=== PATIENT | male | born 1980 | race Caucasian/White ===

== ENCOUNTER 2016-09-11 22:46 | Emergency (ER) | payer BC, OTHER ==
[~2016-09-11] VITALS: Ht 167.6 cm; Wt 85.9 kg
[~2016-09-11 22:46] MED LIST: NO HOME MEDICATIONS; PRIL40 PO; ROBAXIN 50500 MG/TAB PO; ULTRAM 50MG TAB50 MG PO
[2016-09-11 23:02] VITALS: TEMP 98.8
[2016-09-11 23:40] LABS: BASO % 0.5 % (0.0-2.0); EOS # 0.1 (0.0-0.7); EOS % 0.8 % (0-4.0); GRAN # 4.7 (1.4-6.5); GRAN % 55.2 % (42.2-75.2); HEMATOCRIT 42.9 % (42.0-52.0); HEMOGLOBIN 14.3 g/dl (13.5-18.0); LYMPH # 3.1 (1.2-3.4); MEAN CELL VOLUME 84 fl (80.0-100.0); MEAN CORPUSCULAR HEMOGLOBIN 28 pg (27.0-31.0); MEAN CORPUSCULAR HGB CONC 33 g/dl (33.0-37.0); MEAN PLATELET VOLUME 10.5 fl (7.4-10.4); MONO # 0.6 (0.1-0.6); MONO % 7.3 % (1.7-9.3); PLATELET COUNT 246 K/mm3 (130-400); RED BLOOD COUNT 5.12 M/mm3 (4.20-5.60); REDCELL DISTRIBUTION WIDTH-CV 13.6 % (11.5-14.5); WHITE BLOOD COUNT 8.5 K/mm3 (4.8-10.8)
[2016-09-11 23:50] LABS: ADJUSTED CALCIUM 8.7 mg/dL (8.4-10.2); ALANINE AMINOTRANSFERASE 42 U/L (21-72); ALBUMIN 4.6 gm/dL (3.5-5.0); ALKALINE PHOSPHATASE 56 U/L (50-136); ANION GAP 12 mmol/L (7-16); BILIRUBIN,TOTAL 0.7 mg/dL (0.0-1.0); BLOOD UREA NITROGEN 15 mg/dL (9-20); CALCIUM 9.2 mg/dL (8.4-10.2); CARBON DIOXIDE 27 mmol/L (22-30); CHLORIDE 103 mmol/L (98-107); CREATININE, serum 0.93 mg/dL (0.66-1.25); GLUCOSE 82 mg/dL (74-106); LIPASE 64 U/L (23-300); POTASSIUM 3.8 mmol/L (3.4-5.0); SODIUM 141 mmol/L (137-145)
[2016-09-12 00:03] LABS: B-TYPE NATRIURETIC PEPTIDE 15 pg/mL (0-125); TROPONIN-I < 0.012 ng/mL (0.000-0.034)
[2016-09-12 01:56] VITALS: BP 123/77; PULSE 56
== END 2016-09-12 02:19 | disposition home or self-care (01) ==
LOC: COL.ER 22:46
PROVIDERS: Emergency Medicine
DX: R07.9 Chest pain, unspecified (principal); R00.1 Bradycardia, unspecified
CPT/HCPCS: J1885

== ENCOUNTER → 2017-09-01 | Outpatient (CLI) | payer BC | LOC: COL.RAD 10:20 | DX: N13.30 Unspecified hydronephrosis (principal) | CPT/HCPCS: A9562; J1940 ==

== ENCOUNTER 2018-08-02 07:57 | Emergency (ER) | payer BC ==
[~2018-08-02] VITALS: Ht 170.2 cm; Wt 86.4 kg
[2018-08-02 08:00] VITALS: TEMP 97.1
[2018-08-02 08:14] LABS: COLLECTION METHOD CLEAN CATCH
[2018-08-02 08:24] LABS: MUCOUS Present /lpf; PH 6 (5-8); SQUAMOUS EPITHELIAL None Seen /hpf; URINE APPEARANCE Clear; URINE BACTERIA None Seen /hpf; URINE BILIRUBIN Negative (NEGATIVE); URINE BLOOD Negative (NEGATIVE); URINE COLOR Yellow; URINE GLUCOSE Negative (NEGATIVE); URINE KETONE Negative (NEGATIVE); URINE LEUKOCYTE ESTERASE Negative (NEGATIVE); URINE NITRATE Negative (NEGATIVE); URINE PROTEIN(semi-quant) Negative (NEGATIVE); URINE RBC 0-2 /hpf; URINE UROBILINOGEN Negative (NEGATIVE)
[2018-08-02 08:25] LABS: BASO # 0.1 (0.0-0.2); BASO % 0.6 % (0.0-2.0); EOS % 0.4 % (0-4.0); GRAN # 4.6 (1.4-6.5); GRAN % 50.6 % (42.2-75.2); HEMATOCRIT 44.4 % (42.0-52.0); HEMOGLOBIN 14.5 g/dl (13.5-18.0); LYMPH # 3.9 (1.2-3.4); LYMPH % 42.5 % (20.0-51.0); MEAN CELL VOLUME 85 fl (80.0-100.0); MEAN CORPUSCULAR HEMOGLOBIN 28 pg (27.0-31.0); MEAN CORPUSCULAR HGB CONC 33 g/dl (33.0-37.0); MEAN PLATELET VOLUME 10.8 fl (7.4-10.4); MONO # 0.5 (0.1-0.6); MONO % 5.7 % (1.7-9.3); PLATELET COUNT 232 K/mm3 (130-400); RED BLOOD COUNT 5.23 M/mm3 (4.20-5.60); REDCELL DISTRIBUTION WIDTH-CV 13.9 % (11.5-14.5)
[2018-08-02 08:37] LABS: ALBUMIN 4.4 gm/dL (3.5-5.0); BILIRUBIN,TOTAL 0.4 mg/dL (0.0-1.0); C-REACTIVE PROTEIN 0.6 mg/dL (0.0-0.9); CALCIUM 9.2 mg/dL (8.4-10.2); CREATININE, serum 0.81 mg/dL (0.66-1.25); POTASSIUM 4.5 mmol/L (3.4-5.0); TOTAL PROTEIN 7.8 gm/dL (6.4-8.2)
[2018-08-02] MEDS ORDERED: ZOFRAN 4MG T4 MG/TAB PO (09:57)
[2018-08-02] MEDS ORDERED: DAZIDOX10 MG PO (09:57)
[2018-08-02 10:13] VITALS: BP 126/90
[2018-08-02 11:52] VITALS: PULSE 51
== END 2018-08-02 11:53 | disposition home or self-care (01) ==
LOC: COL.ER 07:57
PROVIDERS: Physician Assistant
DX: N13.5 Crossing vessel and stricture of ureter without hydronephrosis (principal); Z87.442 Personal history of urinary calculi
CPT/HCPCS: J1630; J1885; J2270; J2405; J2550; J7030; J7040; Q9967

== ENCOUNTER 2019-01-13 16:28 | Emergency (ER) | payer BC ==
[~2019-01-13] VITALS: Ht 170.2 cm; Wt 93.2 kg
[~2019-01-13 16:28] MED LIST changes: +DAZIDOX10 MG PO; +ZOFRAN 4MG T4 MG/TAB PO
[2019-01-13 16:35] VITALS: BP 151/98; TEMP 98.6
[2019-01-13 19:24] LABS: BASO % 0.5 % (0.0-2.0); EOS % 0.2 % (0-4.0); GRAN # 5.5 (1.4-6.5); GRAN % 62.8 % (42.2-75.2); HEMATOCRIT 42.2 % (42.0-52.0); HEMOGLOBIN 14.1 g/dl (13.5-18.0); LYMPH # 2.7 (1.2-3.4); LYMPH % 30.5 % (20.0-51.0); MEAN CELL VOLUME 84 fl (80.0-100.0); MEAN CORPUSCULAR HEMOGLOBIN 28 pg (27.0-31.0); MEAN CORPUSCULAR HGB CONC 33 g/dl (33.0-37.0); MEAN PLATELET VOLUME 11.2 fl (7.4-10.4); MONO # 0.5 (0.1-0.6); MONO % 5.7 % (1.7-9.3); PLATELET COUNT 245 K/mm3 (130-400); RED BLOOD COUNT 5.01 M/mm3 (4.20-5.60); REDCELL DISTRIBUTION WIDTH-CV 13.7 % (11.5-14.5)
[2019-01-13 20:16] LABS: ALBUMIN 4.3 gm/dL (3.5-5.0); BILIRUBIN,TOTAL 0.4 mg/dL (0.0-1.0); C-REACTIVE PROTEIN 0.8 mg/dL (0.0-0.9); CALCIUM 9.3 mg/dL (8.4-10.2); CREATININE, serum 0.72 (0.66-1.25); POTASSIUM 4.2 mmol/L (3.4-5.0); TOTAL PROTEIN 7.9 gm/dL (6.4-8.2)
[2019-01-13 21:47] VITALS: PULSE 66
== END 2019-01-13 21:46 | disposition home or self-care (01) ==
LOC: COL.ER 16:28
PROVIDERS: Nurse Practitioner
DX: R10.12 Left upper quadrant pain (principal); Z87.442 Personal history of urinary calculi
CPT/HCPCS: J2270; J2405; J7030; Q9967

== ENCOUNTER 2021-08-01 01:34 | Emergency (ER) | payer BC ==
[~2021-08-01] VITALS: Ht 167.6 cm; Wt 90.9 kg
[2021-08-01 01:40] VITALS: TEMP 98.5
[2021-08-01 02:13] LABS: GRAN # 3.7 K/mm3 (1.4-6.5); GRAN % 67.5 % (42.2-75.2); HEMATOCRIT 41.7 % (42.0-52.0); HEMOGLOBIN 14.2 g/dl (13.5-18.0); LYMPH # 1.4 K/mm3 (1.2-3.4); LYMPH % 26.1 % (20.0-51.0); MEAN CELL VOLUME 81 fl (80.0-100.0); MEAN CORPUSCULAR HEMOGLOBIN 28 pg (27-31); MEAN CORPUSCULAR HGB CONC 34 g/dl (33.0-37.0); MEAN PLATELET VOLUME 11.1 fl (7.4-10.4); MONO # 0.3 K/mm3 (0.1-0.6); MONO % 5.9 % (1.7-9.3); PLATELET COUNT 171 K/mm3 (130-400); RED BLOOD COUNT 5.17 M/mm3 (4.20-5.60); REDCELL DISTRIBUTION WIDTH-CV 13.3 % (11.5-14.5)
[2021-08-01 02:32] LABS: ALBUMIN 3.6 gm/dL (3.5-5.0); BILIRUBIN,TOTAL 0.6 mg/dL (0.2-1.2); C-REACTIVE PROTEIN 18.86 mg/dL (0.00-0.50); CALCIUM 8.7 mg/dL (8.4-10.2); CREATININE, serum 0.82 mg/dL (0.72-1.25); POTASSIUM 4.4 mmol/L (3.5-4.5); TOTAL PROTEIN 7.7 gm/dL (6.2-8.1)
[2021-08-01] MEDS ORDERED: ZOFRAN ODT4 MG PO (03:06)
[2021-08-01] MEDS ORDERED: TUSS PO (03:06)
[2021-08-01 03:55] VITALS: BP 115/70; PULSE 78
== END 2021-08-01 03:56 | disposition home or self-care (01) ==
LOC: COL.ER 01:34
PROVIDERS: Emergency Medicine
DX: U07.1 COVID-19 (principal); R11.2 Nausea with vomiting, unspecified
CPT/HCPCS: J1885; J2405; J2550; J7030